=== PATIENT | male | born 1975 | race Caucasian/White ===

== ENCOUNTER → 2019-08-12 | Outpatient (CLI) | payer OTHER ==
[2019-08-12 09:12] LABS: BASO # 0.1 (0.0-0.2); BASO % 0.7 % (0.0-2.0); EOS # 0.2 (0.0-0.7); EOS % 2.8 % (0-4.0); GRAN # 3.7 (1.4-6.5); GRAN % 55.2 % (42.2-75.2); HEMOGLOBIN 14.3 g/dl (13.5-18.0); LYMPH % 29.9 % (20.0-51.0); MEAN CELL VOLUME 90 fl (80.0-100.0); MEAN CORPUSCULAR HEMOGLOBIN 31 pg (27.0-31.0); MEAN CORPUSCULAR HGB CONC 35 g/dl (33.0-37.0); MEAN PLATELET VOLUME 9.6 fl (7.4-10.4); MONO # 0.8 (0.1-0.6); MONO % 11.1 % (1.7-9.3); PLATELET COUNT 288 K/mm3 (130-400); RED BLOOD COUNT 4.58 M/mm3 (4.20-5.60); REDCELL DISTRIBUTION WIDTH-CV 12.2 % (11.5-14.5)
[2019-08-12 09:27] LABS: ALBUMIN 4.8 gm/dL (3.5-5.0); BILIRUBIN,TOTAL 0.9 mg/dL (0.0-1.0); CALCIUM 9.8 mg/dL (8.4-10.2); CREATININE, serum 0.7 (0.66-1.25); POTASSIUM 4.2 mmol/L (3.4-5.0); PROTHROMBIN TIME 11.4 SECONDS (9.7-12.8); TOTAL PROTEIN 7.5 gm/dL (6.4-8.2)
[2019-08-12 09:33] LABS: IRON,SERUM 133 ug/dL (35-150)
[2019-08-12 09:43] LABS: TOTAL IRON BINDING CAPACITY 302 ug/dL (261-462)
[2019-08-13 04:23] LABS: CERULOPLASMIN 26 mg/dL (20-60)
[2019-08-15 22:48] LABS: CYTOMEGALOVIRUS AB IGM INT Negative (Negative)
[2019-08-16 13:25] LABS: EBV NUCLEAR ANTIGEN IGG Positive (())
[2019-08-16 13:26] LABS: EBV EARLY ANTIGEN IGG Negative (())
[2019-08-16 14:11] LABS: EBV IGM AB Negative (())
[2019-08-16 14:14] LABS: A1A PHENOTYPE 147 mg/dL (())
== END ==
LOC: COL.RAD 07:44
PROVIDERS: Student in an Organized Health Care Education/Training Program
DX: R11.10 Vomiting, unspecified (principal); R19.7 Diarrhea, unspecified; R74.8 Abnormal levels of other serum enzymes; R94.5 Abnormal results of liver function studies